=== PATIENT | female | born 1960 | race Caucasian/White ===

== ENCOUNTER 2023-04-22 07:36 | Outpatient (CLI) | payer OTHER | END 2023-04-22 07:48 | disposition home or self-care (01) | LOC: TOM 07:36 | PROVIDERS: ATTEND Internal Medicine Gastroenterology | DX: K56.609 Unspecified intestinal obstruction, unspecified as to partial versus complete obstruction (principal) ==

== ENCOUNTER 2023-07-01 10:19 | Outpatient (CLI) | payer OTHER ==
[2023-07-01] MEDS ORDERED: LOSARTAN POTASS50 MG PO (13:34)
[2023-07-01] MEDS ORDERED: HYDROCHLOROTH12.5 MG PO (13:34)
[2023-07-01] MEDS ORDERED: TAMS0.4C PO (13:35)
== END 2023-07-01 10:27 | disposition home or self-care (01) ==
LOC: LAB 10:19
PROVIDERS: ATTEND Surgery
DX: Z03.818 Encounter for observation for suspected exposure to other biological agents ruled out (principal); I10 Essential (primary) hypertension; R10.9 Unspecified abdominal pain

== ENCOUNTER 2023-07-07 05:40 | Day surgery (SDC) | payer OTHER ==
[~2023-07-07] VITALS: Ht 170.2 cm; Wt 81.6 kg
[~2023-07-07 05:40] MED LIST: HYDROCHLOROTH12.5 MG PO; LOSARTAN POTASS50 MG PO; TAMS0.4C PO
[2023-07-07] MEDS ORDERED: MIRALAX17 GM PO (09:43)
[2023-07-07] MEDS ORDERED: TRAMADOL HCL50 MG PO (09:43)
[2023-07-07] MEDS ORDERED: TYLENOL ARTHRI650 MG PO (09:43)
[2023-07-07] MEDS ORDERED: KETO10TA2 PO (09:43)
== END 2023-07-07 14:00 | disposition home or self-care (01) ==
LOC: CIR.AMB 05:40
PROVIDERS: ATTEND Surgery
DX: K40.90 Unilateral inguinal hernia, without obstruction or gangrene, not specified as recurrent (principal); K42.0 Umbilical hernia with obstruction, without gangrene
CPT/HCPCS: 49650; 49592; C1781